=== PATIENT | female | born 1950 | race Two or more races ===

== ENCOUNTER → 2017-01-20 | Outpatient (CLI) | payer BC, OTHER | LOC: CIMAGING 12:27 | PROVIDERS: ATTEND Family Medicine | DX: R76.11 Nonspecific reaction to tuberculin skin test without active tuberculosis (principal) | CPT/HCPCS: 71020-PO ==

== ENCOUNTER → 2017-08-07 | Outpatient (CLI) | payer OTHER, BC | LOC: FIMAGING 13:54 | PROVIDERS: ATTEND Nurse Practitioner Women's Health | DX: Z13.820 Encounter for screening for osteoporosis (principal); M85.89 Other specified disorders of bone density and structure, multiple sites; Z78.0 Asymptomatic menopausal state ==

== ENCOUNTER → 2017-11-24 | Outpatient (CLI) | payer OTHER, BC | LOC: BRMIMAGING 13:28 | PROVIDERS: ATTEND Nurse Practitioner Women's Health | DX: Z12.31 Encounter for screening mammogram for malignant neoplasm of breast (principal); Z80.3 Family history of malignant neoplasm of breast; Z98.82 Breast implant status ==

== ENCOUNTER → 2018-01-31 | Outpatient (CLI) | payer OTHER, BC | LOC: BHFA 13:15 | PROVIDERS: ATTEND Internal Medicine Cardiovascular Disease | DX: R55 Syncope and collapse (principal); R06.02 Shortness of breath; I10 Essential (primary) hypertension ==

== ENCOUNTER → 2018-02-28 | Outpatient (CLI) | payer OTHER, BC | LOC: BHFA 13:15 | PROVIDERS: ATTEND Internal Medicine Cardiovascular Disease | DX: R06.09 Other forms of dyspnea (principal) ==

== ENCOUNTER 2018-05-31 23:08 | Emergency (ER) | payer OTHER, BC ==
[2018-05-31] MEDS ORDERED: NS 1,000 ML IV ONE (23:37)
[2018-05-31] MEDS ORDERED: ONDANSETRON 4 MG/2 ML VIAL IVP ONE (23:37)
--- NOTE | 2018-05-31 23:41 | EDPHY ---
H & P Stated Complaint: abd pain. vomiting Time Seen by Provider: 05/31/18 23:20 HPI/ROS: HPI The patient presents with left-sided upper abdominal pain which has been present since about 4:00 p.m. Today which started slowly and got progressively worse. The pain is cramping, constant, minimally improved with a heating pad which she tried earlier. It is well localized, does not radiate. She had nausea and vomiting following the pain and has had several episodes of vomiting , last about 1 hr ago in which she noticed some small black specks which she suspects are blood. She had a bowel movement about 1 hr ago which was normal, nonbloody and not dark. She says that during the day today she did not have an appetite. She does not have a fever. 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 REVIEW OF SYSTEMS 10 systems were reviewed and negative with the exception of the elements mentioned in the history of present illness. PMHx: Hypertension, history of migraine headaches Soc Hx: Here with her , works as a physician assistant laboratory director PHYSICAL General Appearance: Alert, no distress Eyes: Pupils equal and round no pallor or injection ENT, Mouth: Mucous membranes dry Respiratory: There are no retractions, lungs are clear to auscultation Cardiovascular: Regular rate and rhythm Gastrointestinal: Abdomen is soft and tender in the left upper quadrant minimally, no masses, bowel sounds normal Neurological: A&O, moves all extremities Skin: Warm and dry, no rashes Musculoskeletal: Neck is supple non tender Extremities: symmetrical, full range of motion Psychiatric: Patient is oriented X 3, there is no agitation Source: Patient Exam Limitations: No limitations - Personal History Current Tetanus Diphtheria and Acellular Pertussis (TDAP): Yes - Medical/Surgical History Hx Asthma: No Hx Chronic Respiratory Disease: No Hx Diabetes: No Hx Cardiac Disease: No Hx Renal Disease: No Hx Cirrhosis: No Hx Alcoholism: No Hx HIV/AIDS: No Hx Splenectomy or Spleen Trauma: No Other PMH: hypertension, chronic pain, migraines - Social History Smoking Status: Never smoked Constitutional: Initial Vital Signs Temperature (C) 36.8 C 05/31/18 23:12 Heart Rate 102 H 05/31/18 23:12 Respiratory Rate 20 05/31/18 23:12 Blood Pressure 92/71 L 05/31/18 23:12 O2 Sat (%) 95 05/31/18 23:12 O2 Delivery Mode Room Air Allergies/Adverse Reactions: Sulfa (Sulfonamide Antibiotics) Allergy (Verified 05/31/18 23:12) Home Medications: Medication Instructions Recorded Amitriptyline HCl 25 mg PO 06/01/18 Estradiol 0.25 mg 06/01/18 Losartan Potassium 25 mg PO 06/01/18 Magnesium 250 mg 06/01/18 Ondansetron Odt [Zofran Odt 4 mg 4 mg PO Q4 PRN #10 tab 06/01/18 (*)] Propranolol HCl 06/01/18 Ranitidine HCl 150 mg PO 06/01/18 Valtrex 500 mg 06/01/18 Medical Decision Making - Diagnostics Imaging Results: Imaging Impressions Abdomen X-Ray 05/31/18 23:38 Impression: Nonspecific bowel gas pattern. Imaging: Discussed imaging studies w/ equity research associate Radiologist, I viewed and interpreted images myself Differential Diagnosis: 68-year-old female with remote history of splenectomy, hypertension, migraine- type headaches presents with several hours of left upper quadrant abdominal pain which is crampy and associated with vomiting. Here, she has normal vital signs and is generally well-appearing. She has minimal tenderness of her left upper quadrant. Differential diagnosis includes small bowel obstruction, partial small-bowel obstruction, pancreatitis. In the emergency department, patient was given IV fluids and Zofran. Basic labs were checked and she had a mildly elevated lipase. She could have pancreatitis or elevated lipase simply from vomiting. Other labs were fairly normal, BUN was slightly elevated which I attribute to dehydration. I offered her a CT scan, however she would like to do a KUB because she does not feel she has any serious abdominal pathology. KUB demonstrated nonspecific bowel gas pattern. She did have a temporary crown placed by her dentist and swallowed it. The crown seems to be near her rectum at this point. When she tried to p. O. Challenge she had symptoms of GERD which she does have a history of. Thus, she was given a dose of famotidine and additional L of fluids. When I reassessed her, her left-sided pain was gone in her nausea was feeling better. She had no vomiting. She was hesitant to try drinking any fluids because of her GERD. I offered her admission to the hospital for observation, however she declines. She says that she can follow up with her primary care doctor tomorrow. She requests a prescription for Zofran and I will give this to her. - Data Points Laboratory Results: Laboratory Results 05/31/18 23:30 05/31/18 23:30 05/31/18 05/31/18 23:30 23:30 WBC 7.77 10^3/uL 10^3/uL (3.80-9.50) RBC 4.55 10^6/uL 10^6/uL (4.18-5.33) Hgb 14.4 g/dL g/dL (12.6-16.3) Hct 42.1 % % (38.0-47.0) MCV 92.5 fL fL (81.5-99.8) MCH 31.6 pg pg (27.9-34.1) MCHC 34.2 g/dL g/dL (32.4-36.7) RDW 12.6 % % (11.5-15.2) Plt Count 297 10^3/uL 10^3/uL (150-400) MPV 9.8 fL fL (8.7-11.7) Neut % (Auto) 82.8 % H % (39.3-74.2) Lymph % (Auto) 11.5 % L % (15.0-45.0) [place] % (Auto) 5.4 % % (4.5-13.0) Eos % (Auto) 0.1 % L % (0.6-7.6) Baso % (Auto) 0.1 % L % (0.3-1.7) Nucleat RBC Rel Count 0.0 % % (0.0-0.2) Absolute Neuts (auto) 6.43 10^3/uL 10^3/uL (1.70-6.50) Absolute Lymphs (auto) 0.89 10^3/uL L 10^3/uL (1.00-3.00) Absolute Monos (auto) 0.42 10^3/uL 10^3/uL (0.30-0.80) Absolute Eos (auto) 0.01 10^3/uL L 10^3/uL (0.03-0.40) Absolute Basos (auto) 0.01 10^3/uL L 10^3/uL (0.02-0.10) Absolute Nucleated RBC 0.00 10^3/uL 10^3/uL (0-0.01) Immature Gran % 0.1 % % (0.0-1.1) Immature Gran # 0.01 10^3/uL 10^3/uL (0.00-0.10) Sodium 136 mEq/L mEq/L (135-145) Potassium 4.1 mEq/L mEq/L (3.5-5.2) Chloride 104 mEq/L mEq/L (97-110) Carbon Dioxide 22 mEq/l mEq/l (22-31) Anion Gap 10 mEq/L mEq/L (6-14) BUN 24 mg/dL H mg/dL (7-23) Creatinine 0.8 mg/dL mg/dL (0.6-1.0) Estimated GFR > 60 Glucose 128 mg/dL H mg/dL (70-100) Calcium 9.0 mg/dL mg/dL (8.5-10.4) Total Bilirubin 0.7 mg/dL mg/dL (0.1-1.4) AST 25 IU/L IU/L (14-46) ALT 30 IU/L IU/L (9-52) Alkaline Phosphatase 88 IU/L IU/L (38-126) Total Protein 7.2 g/dL g/dL (6.3-8.2) Albumin 4.2 g/dL g/dL (3.5-5.0) Lipase 309 IU/L H IU/L (23-300) Medications Given: Discontinued Medications Famotidine (Pepcid) 20 mg IVP EDNOW ONE Stop: 06/01/18 00:32 Last Admin: 06/01/18 00:36 Dose: 20 mg Sodium Chloride (Ns) 1,000 mls @ 0 mls/hr IV EDNOW ONE; Wide Open PRN Reason: Protocol Stop: 05/31/18 23:38 Last Admin: 05/31/18 23:42 Dose: 1,000 mls Sodium Chloride (Ns) 1,000 mls @ 0 mls/hr IV ONCE ONE PRN Reason: Wide Open Stop: 06/01/18 01:26 Last Admin: 06/01/18 01:25 Dose: 1,000 mls Ondansetron HCl (Zofran) 4 mg IVP EDNOW ONE Stop: 05/31/18 23:38 Last Admin: 05/31/18 23:42 Dose: 4 mg Departure - Departure Disposition: Home, Routine, Self-Care Clinical Impression: Abdominal pain Qualifiers: Abdominal location: left upper quadrant Qualified Code(s): R10.12 - Left upper quadrant pain Nausea & vomiting Qualifiers: Vomiting type: unspecified Vomiting Intractability: non-intractable Qualified Code(s): R11.2 - Nausea with vomiting, unspecified Condition: Good Instructions: Acute Nausea and Vomiting (ED) Additional Instructions: Please please return to the emergency department if your abdominal pain continues or becomes worse in any way. You can take the Zofran as needed for your nausea and vomiting. Referrals: Fernanda Lua DO [Primary Care Provider] - As per Instructions Prescriptions: Ondansetron Odt [Zofran Odt 4 mg (*)] 4 mg PO Q4 PRN #10 tab PRN Reason: Nausea/Vomiting, Can'T Take Po
[2018-05-31 23:43] LABS: PLATELET COUNT 297 10^3/uL (150-400)
[2018-06-01] MEDS ORDERED: FAMOTIDINE 20 MG/2 ML SDV IVP ONE (00:31)
[2018-06-01] MEDS ORDERED: ONDANSETRON 4MG PREPACK#2 BTL TAKEHOME ONE (00:55)
[2018-06-01] MEDS ORDERED: NS 1,000 ML IV ONE (01:25)
[2018-06-01 02:39] VITALS: BP 119/76
== END 2018-06-01 02:40 | disposition home or self-care (01) ==
DX: R10.12 Left upper quadrant pain (principal); R11.2 Nausea with vomiting, unspecified; E86.9 Volume depletion, unspecified; I10 Essential (primary) hypertension; G43.909 Migraine, unspecified, not intractable, without status migrainosus; G89.29 Other chronic pain
CPT/HCPCS: 74019; 96361; 96374; 96375; 99284; J2405